=== PATIENT | male | born 1995 | race Caucasian/White ===

== ENCOUNTER 2019-11-09 15:59 | Outpatient (CLI) | payer BC, SELFPAY ==
--- NOTE | ~2019-11-09 | XR_ITS ---
EXAMINATION: XR foot RT min 3V EXAM DATE: 11/09/2019 16:24 INDICATION: Initial encounter following injury, with pain of the right foot, first metatarsal region. TECHNIQUE: Right foot dorsoplantar, lateral and oblique projections obtained and reviewed. There is no prior study for comparison. FINDINGS: Right metatarsal bones unremarkable. There is acute closed posttraumatic nondisplaced int ra-articular fracture through the base of the right first distal phalanx. This finding has been mitzi cated, marked on the examination for review, clinical correlation. There is overlying soft tissue swe lling. No other suspicious findings. IMPRESSION: Acute right first distal phalangeal base fracture. Reviewed, dictated and finalized at location A.
== END 2019-11-09 16:00 | disposition home or self-care (01) ==
LOC: ANHIMG 16:05
PROVIDERS: PCP Family Medicine; Visit Provider Family Medicine
DX: S92.811A Other fracture of right foot, initial encounter for closed fracture (principal)
CPT/HCPCS: 73630

== ENCOUNTER 2020-05-17 11:11 | Outpatient (NON) | payer BC, SELFPAY ==
[2020-05-18 14:03] LABS: SARS-CoV-2 RNA PCR Negative
== END 2020-05-17 11:12 ==
LOC: ANHCOVIDDT 11:12
PROVIDERS: PCP Family Medicine; Visit Provider Family Medicine
DX: R19.7 Diarrhea, unspecified (principal); Z20.828 Contact with and (suspected) exposure to other viral communicable diseases
CPT/HCPCS: 87635; C9803; U0003